=== PATIENT | male | born 1990 | race Caucasian/White ===

== ENCOUNTER 2020-03-17 10:28 | Emergency (ER) | payer OTHER ==
[2020-03-17] MEDS ORDERED: Acetaminophen 500 MG TAB ONE (10:53)
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
== END 2020-03-17 11:53 | disposition home or self-care (01) ==
LOC: NAV ERS 10:28
DX: S00.93XA Contusion of unspecified part of head, initial encounter (principal); I10 Essential (primary) hypertension; W22.8XXA Striking against or struck by other objects, initial encounter; Y99.0 Civilian activity done for income or pay
CPT/HCPCS: 70450; 72125; 99001